=== PATIENT | female | born 1995 | race Caucasian/White ===

== ENCOUNTER 2022-02-20 17:20 | Emergency (ER) | payer OTHER, SELFPAY ==
[2022-02-20] MEDS ORDERED: Morphine 4 MG/ML VIAL ONE (18:43)
[2022-02-20] MEDS ORDERED: Promethazine HCl 25 MG/ML VIAL ONE ×2 (18:43→18:51)
[2022-02-20 18:56] LABS: #Basophils 0.1 thou/uL (0.0-0.2); #Eosinphils 0.1 thou/uL (0.0-0.7); #Lymphocytes 1.6 thou/uL (1.20-3.40); #Monocytes 0.3 thou/uL (0.11-0.59); #Neutrophils 1.8 thou/uL (1.40-6.50); %Basophils 1.3 % (0.0-1.0); %Eosinophils 1.6 % (0.0-10.0); %Lymphocytes 41.7 % (21.0-51.0); %Monocytes 8.3 % (0.0-10.0); %Neutrophils 47.1 % (42.0-75.0); Hemoglobin 11.2 g/dL (12.0-16.0); Mean Corpuscular HGB CONC 32.3 g/dL (32.0-36.0); Mean Corpuscular Hemoglobin 26.9 pg (27.0-31.0); Mean Corpuscular Volume 83.2 fL (78.0-98.0); Mean Platelet Volume 7.8 fL (7.4-10.4); Platelet Count 268 thou/uL (130-400); RBC Distribution Width 13.2 % (11.5-14.5); Red Blood Cell (RBC) Count 4.16 mill/uL (4.20-5.40); White Blood Cell (WBC) Count 3.9 thou/uL (4.8-10.8)
[2022-02-20 19:16] LABS: ALT (SGPT) 21 U/L (8-55); AST (SGOT) 22 U/L (5-34); Albumin 4.4 g/dL (3.5-5.0); Alkaline Phosphatase 72 U/L (40-110); Anion Gap 15 mmol/L (10-20); BUN (Urea Nitrogen) 10 mg/dL (7.0-18.7); Bilirubin, Total Less than 0.2 mg/dL (0.2-1.2); Calc. Creatinine Clearance 0 mL/min (70-130); Calcium 9.1 mg/dL (7.8-10.44); Carbon Dioxide 21 mmol/L (22-29); Chloride 108 mmol/L (98-107); Globulin 2.9 g/dL (2.4-3.5); Glucose 96 mg/dL (70-105); Lipase 28 U/L (8-78); Potassium 3.5 mmol/L (3.5-5.1); Protein, Total 7.3 g/dL (6.0-8.3); Sodium 140 mmol/L (136-145)
[2022-02-20 20:02] LABS: Bacteria/HPF None Seen HPF (None Seen); Bilirubin Negative (Negative); Blood, Urine Negative (Negative); Clarity Clear (Clear); Glucose, Urine (Dipstick) Normal (Negative); Ketone, Urine Negative (Negative); Leukocyte 75 Leu/uL (Negative); Mucous/LPF 1+ LPF (<2+); Nitrite Negative (Negative); Protein, Urine (Dipstick) 10 mg/dL (Neg-Trace); RBC/HPF 0-3 HPF (0-3); Squamous Epithelial 0-3 HPF (0-3); Urobilinogen Normal mg/dL (Less than 2)
[2022-02-20] MEDS ORDERED: HYDROmorphone 0.5 MG/0.5 ML SYRINGE ONE (20:04)
== END 2022-02-20 20:35 | disposition home or self-care (01) ==
LOC: ERS 17:20
DX: R10.13 Epigastric pain (principal)
CPT/HCPCS: 80053; 81003; 81015; 83690; 85025; 96374; 96375; J1170; J2270; J2550

== ENCOUNTER 2022-04-01 16:00 | Emergency (ER) | payer SELFPAY ==
[2022-04-01 16:26] LABS: #Basophils 0.1 thou/uL (0.0-0.2); #Lymphocytes 1.8 thou/uL (1.20-3.40); #Monocytes 0.4 thou/uL (0.11-0.59); #Neutrophils 3.3 thou/uL (1.40-6.50); %Basophils 1.2 % (0.0-1.0); %Eosinophils 0.9 % (0.0-10.0); %Lymphocytes 31.9 % (21.0-51.0); %Monocytes 7.6 % (0.0-10.0); %Neutrophils 58.4 % (42.0-75.0); Hemoglobin 10.1 g/dL (12.0-16.0); Mean Corpuscular HGB CONC 32.3 g/dL (32.0-36.0); Mean Corpuscular Hemoglobin 25.2 pg (27.0-31.0); Mean Corpuscular Volume 78.1 fL (78.0-98.0); Mean Platelet Volume 7.7 fL (7.4-10.4); Platelet Count 331 thou/uL (130-400); RBC Distribution Width 14.8 % (11.5-14.5); Red Blood Cell (RBC) Count 4.01 mill/uL (4.20-5.40); White Blood Cell (WBC) Count 5.6 thou/uL (4.8-10.8)
[2022-04-01 16:48] LABS: ALT (SGPT) 18 U/L (8-55); AST (SGOT) 16 U/L (5-34); Albumin 4.2 g/dL (3.5-5.0); Alkaline Phosphatase 84 U/L (40-110); Anion Gap 15 mmol/L (10-20); BUN (Urea Nitrogen) 12 mg/dL (7.0-18.7); Bilirubin, Total Less than 0.2 mg/dL (0.2-1.2); Calc. Creatinine Clearance 0 mL/min (70-130); Calcium 8.9 mg/dL (7.8-10.44); Carbon Dioxide 21 mmol/L (22-29); Chloride 106 mmol/L (98-107); Globulin 3.1 g/dL (2.4-3.5); Glucose 94 mg/dL (70-105); Lipase 20 U/L (8-78); Potassium 3.8 mmol/L (3.5-5.1); Protein, Total 7.3 g/dL (6.0-8.3); Sodium 138 mmol/L (136-145)
[2022-04-01] MEDS ORDERED: Pantoprazole 40 MG VIAL ONE (17:45)
[2022-04-01] MEDS ORDERED: diphenhydrAMINE 50 MG/ML VIAL ONE (17:45)
[2022-04-01 18:17] LABS: BHCG - Serum Negative (NEGATIVE); Pregs Control Background? CLEAR/WHITE (CLR/WHITE); Pregs Control Bar Appear? YES (CONTROL BAR)
[2022-04-01] MEDS ORDERED: HYDROmorphone 0.5 MG/0.5 ML SYRINGE ONE ×2 (18:26→19:52)
[2022-04-01 19:46] LABS: Bilirubin Negative (Negative); Blood, Urine Negative (Negative); Clarity Clear (Clear); Glucose, Urine (Dipstick) Normal (Negative); Ketone, Urine Negative (Negative); Leukocyte Negative Leu/uL (Negative); Nitrite Negative (Negative); Protein, Urine (Dipstick) Negative (Neg-Trace); Specific Gravity, Urine 1.024 (1.002-1.036); Urobilinogen Normal mg/dL (Less than 2); pH, Urine 5.5 (5.0-9.0)
[2022-04-01 19:48] LABS: Pregnancy Test - Urine (BHCG) Negative (Negative); Pregu Control Background? CLEAR/WHITE (CLR/WHITE); Pregu Control Bar Appear? YES (CONTROL BAR); Specific Gravity 1.024 (1.002-1.036)
[2022-04-01] MEDS ORDERED: Ondansetron PF 4 MG/2 ML Vial ONE (19:52)
== END 2022-04-01 20:17 | disposition home or self-care (01) ==
LOC: ERS 16:00
DX: R10.13 Epigastric pain (principal); R00.0 Tachycardia, unspecified
CPT/HCPCS: 36415; 71045; 80053; 81003; 81025; 83690; 84703; 85025; 93005; 96374; 96375; C9113; J1170; J1200; J2405

== ENCOUNTER 2022-07-06 12:35 | Inpatient (IN) | payer OTHER, SELFPAY ==
[2022-07-06 13:20] LABS: Bilirubin Negative (Negative); Blood, Urine Negative (Negative); Clarity Clear (Clear); Glucose, Urine (Dipstick) Normal (Negative); Ketone, Urine Negative (Negative); Leukocyte Negative Leu/uL (Negative); Nitrite Negative (Negative); Protein, Urine (Dipstick) Negative (Neg-Trace); Specific Gravity, Urine 1.009 (1.002-1.036); Urobilinogen Normal mg/dL (Less than 2)
[2022-07-06 13:31] LABS: Amphetamine Not Detected (NotDetected); Barbiturates Screen Not Detected (NotDetected); Benzodiazepine Screen Not Detected (NotDetected); Cocaine Metabolite Screen Not Detected (NotDetected); Methadone Not Detected (NotDetected); Methamphetamine Not Detected (NotDetected); Opiate Screen Not Detected (NotDetected); Oxycodone Screen Not Detected (NotDetected); Phencyclidine (PCP) Not Detected (NotDetected); THC/Cannabinoid Screen Not Detected (NotDetected); Tricyclic Screen Not Detected (NotDetected)
[2022-07-06 13:39] LABS: #Eosinphils 0.1 thou/uL (0.0-0.7); #Lymphocytes 1.5 thou/uL (1.20-3.40); #Monocytes 0.4 thou/uL (0.11-0.59); #Neutrophils 3.7 thou/uL (1.40-6.50); %Basophils 0.7 % (0.0-1.0); %Eosinophils 1.1 % (0.0-10.0); %Lymphocytes 26.4 % (21.0-51.0); %Monocytes 6.5 % (0.0-10.0); %Neutrophils 65.3 % (42.0-75.0); Hemoglobin 10.1 g/dL (12.0-16.0); Mean Corpuscular Hemoglobin 24.1 pg (27.0-31.0); Mean Corpuscular Volume 75.2 fL (78.0-98.0); Platelet Count 318 thou/uL (130-400); RBC Distribution Width 18.7 % (11.5-14.5); Red Blood Cell (RBC) Count 4.18 mill/uL (4.20-5.40); White Blood Cell (WBC) Count 5.6 thou/uL (4.8-10.8)
[2022-07-06 13:44] LABS: BHCG - Serum Negative (NEGATIVE); Pregs Control Background? CLEAR/WHITE (CLR/WHITE); Pregs Control Bar Appear? YES (CONTROL BAR)
[2022-07-06 14:04] LABS: ALT (SGPT) 14 U/L (8-55); AST (SGOT) 14 U/L (5-34); Albumin 4.4 g/dL (3.5-5.0); Alkaline Phosphatase 86 U/L (40-110); Anion Gap 16 mmol/L (10-20); BUN (Urea Nitrogen) 12 mg/dL (7.0-18.7); Bilirubin, Total 0.2 mg/dL (0.2-1.2); Calc. Creatinine Clearance 0 mL/min (70-130); Calcium 9.6 mg/dL (7.8-10.44); Carbon Dioxide 20 mmol/L (22-29); Chloride 106 mmol/L (98-107); Estimated GFR 115; Globulin 3.1 g/dL (2.4-3.5); Glucose 98 mg/dL (70-105); Lipase 16 U/L (8-78); Protein, Total 7.5 g/dL (6.0-8.3); Sodium 138 mmol/L (136-145)
[2022-07-06] MEDS ORDERED: Ondansetron PF 4 MG/2 ML Vial ONE (14:26)
[2022-07-06] MEDS ORDERED: Morphine 4 MG/ML VIAL ONE (14:26)
[2022-07-06] MEDS ORDERED: HYDROmorphone 0.5 MG/0.5 ML SYRINGE ONE (15:19)
[2022-07-06] MEDS ORDERED: Ondansetron ODT 4 MG TAB PO PRN (15:48)
[2022-07-06] MEDS ORDERED: Acetaminophen 325 MG TAB PO PRN (15:48)
[2022-07-06] MEDS ORDERED: Senokot S 8.6-50 MG TAB PO PRN (15:48)
[2022-07-06] MEDS ORDERED: Metoclopramide HCl 10 MG/2 ML VIAL IVP SCH (16:45)
[2022-07-06] MEDS ORDERED: HYDROmorphone 0.5 MG/0.5 ML SYRINGE SLOW IVP SCH (18:00)
[2022-07-06] MEDS ORDERED: Pantoprazole 40 MG VIAL IVP SCH (18:00)
[2022-07-06] MEDS ORDERED: Promethazine HCl 25 MG/ML VIAL IM SCH (18:15)
[2022-07-06] MEDS: Ondansetron PF 4 MG/2 ML Vial IVP PRN (18:27)
[2022-07-06] MEDS: Sodium Chloride 0.9% 1,000 ML IV SCH (18:29)
[2022-07-06 18:34] VITALS: BMI 35.6
[2022-07-06 19:12] LABS: SARS-CoV-2 NAA Rapid Test Not Detected (NotDetected)
[2022-07-06] MEDS: Morphine 2 MG/ML VIAL SLOW IVP PRN (21:05)
[2022-07-06] MEDS: Venlafaxine HCl XR 150 MG CAP PO SCH ×2 (21:05→21:06)
[2022-07-06 22:12] LABS: Hemoglobin 9.1 g/dL (12.0-16.0)
[2022-07-06] MEDS ORDERED: Morphine 2 MG/ML VIAL SLOW IVP SCH (22:30)
[2022-07-07] MEDS ORDERED: HYDROmorphone 0.5 MG/0.5 ML SYRINGE SLOW IVP SCH ×3 (01:00→18:30)
[2022-07-07] MEDS ORDERED: diphenhydrAMINE 50 MG/ML VIAL IVP SCH ×2 (01:15→12:15)
[2022-07-07] MEDS ORDERED: diphenhydrAMINE 25 MG in Sodium Chloride 0.9% 50 ML IVPB SCH (01:15)
[2022-07-07] MEDS: Sodium Chloride 0.9% 1,000 ML IV SCH ×4 (01:33→23:31)
[2022-07-07] MEDS: Morphine 2 MG/ML VIAL SLOW IVP PRN ×6 (03:13→23:27)
[2022-07-07 05:15] LABS: #Eosinphils 0.1 thou/uL (0.0-0.7); #Lymphocytes 1.9 thou/uL (1.20-3.40); #Monocytes 0.4 thou/uL (0.11-0.59); #Neutrophils 2.4 thou/uL (1.40-6.50); %Basophils 0.9 % (0.0-1.0); %Eosinophils 1.5 % (0.0-10.0); %Lymphocytes 39.6 % (21.0-51.0); %Monocytes 7.5 % (0.0-10.0); %Neutrophils 50.6 % (42.0-75.0); Hemoglobin 8.9 g/dL (12.0-16.0); Mean Corpuscular HGB CONC 31.5 g/dL (32.0-36.0); Mean Corpuscular Hemoglobin 24.1 pg (27.0-31.0); Mean Corpuscular Volume 76.5 fL (78.0-98.0); Mean Platelet Volume 8.7 fL (7.4-10.4); Platelet Count 273 thou/uL (130-400); RBC Distribution Width 18.4 % (11.5-14.5); White Blood Cell (WBC) Count 4.7 thou/uL (4.8-10.8)
[2022-07-07 05:35] LABS: ALT (SGPT) 11 U/L (8-55); AST (SGOT) 12 U/L (5-34); Albumin 3.6 g/dL (3.5-5.0); Alkaline Phosphatase 77 U/L (40-110); Anion Gap 12 mmol/L (10-20); BUN (Urea Nitrogen) 9 mg/dL (7.0-18.7); Bilirubin, Total 0.3 mg/dL (0.2-1.2); Calc. Creatinine Clearance 204 mL/min (70-130); Calcium 8.7 mg/dL (7.8-10.44); Carbon Dioxide 23 mmol/L (22-29); Chloride 109 mmol/L (98-107); Estimated GFR 121; Globulin 2.3 g/dL (2.4-3.5); Glucose 80 mg/dL (70-105); Lipase 30 U/L (8-78); Potassium 4.2 mmol/L (3.5-5.1); Protein, Total 5.9 g/dL (6.0-8.3); Sodium 140 mmol/L (136-145)
[2022-07-07] MEDS ORDERED: Lidocaine 1% MPF 2 ML VIAL ONE (10:57)
[2022-07-07] MEDS ORDERED: PROPOFOL 200 MG/20 ML VIAL ONE (10:57)
[2022-07-07] MEDS ORDERED: Ondansetron HCl/PF 4 MG/2 ML Vial IVP PRN (11:27)
[2022-07-07] MEDS ORDERED: PACU-Morphine 4MG/ML VIAL SLOW IVP PRN (11:27)
[2022-07-07] MEDS ORDERED: Morphine 2 MG/ML VIAL ONE (11:33)
[2022-07-07] MEDS: Pantoprazole 40 MG VIAL IVP SCH ×2 (12:06→20:27)
[2022-07-07 17:10] LABS: Hemoglobin 9.9 g/dL (12.0-16.0)
[2022-07-08] MEDS: Morphine 2 MG/ML VIAL SLOW IVP PRN ×3 (02:44→08:24)
[2022-07-08] MEDS: Ondansetron PF 4 MG/2 ML Vial IVP PRN (04:18)
[2022-07-08 05:58] LABS: ALT (SGPT) 14 U/L (8-55); AST (SGOT) 14 U/L (5-34); Albumin 3.8 g/dL (3.5-5.0); Alkaline Phosphatase 79 U/L (40-110); Anion Gap 12 mmol/L (10-20); BUN (Urea Nitrogen) 7 mg/dL (7.0-18.7); Bilirubin, Total 0.4 mg/dL (0.2-1.2); Calc. Creatinine Clearance 195 mL/min (70-130); Calcium 8.8 mg/dL (7.8-10.44); Carbon Dioxide 25 mmol/L (22-29); Chloride 105 mmol/L (98-107); Estimated GFR 115; Globulin 2.7 g/dL (2.4-3.5); Glucose 82 mg/dL (70-105); Iron Binding Capacity, Total 444 mcg/dL (265-497); Lipase 16 U/L (8-78); Potassium 3.9 mmol/L (3.5-5.1); Protein, Total 6.5 g/dL (6.0-8.3); Sodium 138 mmol/L (136-145)
[2022-07-08] MEDS: Pantoprazole 40 MG VIAL IVP SCH ×2 (08:24→20:22)
[2022-07-08] MEDS ORDERED: HYDROmorphone 0.5 MG/0.5 ML SYRINGE SLOW IVP SCH (10:00)
[2022-07-08] MEDS: Sodium Chloride 0.9% 1,000 ML IV SCH ×2 (10:41→20:27)
[2022-07-08] MEDS ORDERED: Ketorolac Tromethamine 30 MG/ML VIAL IVP PRN (12:36)
[2022-07-08] MEDS: Morphine ER 15 MG TAB PO SCH (14:29)
[2022-07-08] MEDS: Morphine 4 MG/ML VIAL SLOW IVP PRN ×3 (15:11→22:09)
[2022-07-08] MEDS: Venlafaxine HCl XR 150 MG CAP PO SCH (20:22)
[2022-07-09] MEDS: Morphine ER 15 MG TAB PO SCH (00:01)
[2022-07-09] MEDS: Morphine 4 MG/ML VIAL SLOW IVP PRN ×4 (01:14→10:48)
[2022-07-09] MEDS: Sodium Chloride 0.9% 1,000 ML IV SCH (04:39)
[2022-07-09 06:02] LABS: ALT (SGPT) 12 U/L (8-55); AST (SGOT) 14 U/L (5-34); Albumin 3.5 g/dL (3.5-5.0); Alkaline Phosphatase 73 U/L (40-110); Anion Gap 14 mmol/L (10-20); BUN (Urea Nitrogen) 7 mg/dL (7.0-18.7); Bilirubin, Total 0.3 mg/dL (0.2-1.2); CRP (Inflammatory) 2.01 mg/dL (= or < 0.5); Calc. Creatinine Clearance 209 mL/min (70-130); Calcium 8.7 mg/dL (7.8-10.44); Carbon Dioxide 21 mmol/L (22-29); Chloride 106 mmol/L (98-107); Estimated GFR 123; Globulin 2.5 g/dL (2.4-3.5); Glucose 69 mg/dL (70-105); Lipase 16 U/L (8-78); Sodium 137 mmol/L (136-145)
[2022-07-09] MEDS: Pantoprazole 40 MG VIAL IVP SCH (07:45)
[2022-07-09 08:36] VITALS: BP 110/72; TEMP 97.3
[2022-07-09 09:06] LABS: Hemoglobin 8.7 g/dL (12.0-16.0); Platelet Count 252 thou/uL (130-400)
[2022-07-11 14:59] LABS: ANA Symphony (Qualitative) Negative (Negative); ANA Symphony (Quantitative) 0.2 Ratio (< 0.7 Negative); dsDNA IgG Antibody 0.6 IU/mL (<10 Negative)
== END 2022-07-09 11:35 | disposition home or self-care (01) | DRG 377 ==
LOC: SUATTDRO 12:35 → ERS 12:35 → ERHOLD 15:57 → 2NO 17:50 → MSONC 07-07 17:34 → OBSVTOIN 07-08 13:49
PROVIDERS: ADMIT Internal Medicine; ATTEND Internal Medicine
PROC: 0DB98ZX Excision of Duodenum, Via Natural or Artificial Opening Endoscopic, Diagnostic (ICD-10-PCS; principal; 2022-07-07)
PROC: 0DB78ZX Excision of Stomach, Pylorus, Via Natural or Artificial Opening Endoscopic, Diagnostic (ICD-10-PCS; 2022-07-07)
PROC: 0W3P8ZZ Control Bleeding in Gastrointestinal Tract, Via Natural or Artificial Opening Endoscopic (ICD-10-PCS; 2022-07-07)
DX: K29.01 Acute gastritis with bleeding (principal); K85.80 Other acute pancreatitis without necrosis or infection; K86.1 Other chronic pancreatitis; Z20.822 Contact with and (suspected) exposure to COVID-19; D50.9 Iron deficiency anemia, unspecified; Z90.710 Acquired absence of both cervix and uterus; Z90.49 Acquired absence of other specified parts of digestive tract; Z79.899 Other long term (current) drug therapy; Z86.711 Personal history of pulmonary embolism; Z53.29 Procedure and treatment not carried out because of patient's decision for other reasons
CPT/HCPCS: 36415; 71045; 80053; 80306; 81003; 82728; 82787; 83516; 83550; 83690; 84484; 84703; 85014; 85018; 85025; 85049; 85652; 86038; 86140; 86225; 88305; 93005; C9113; J1170; J1200; J1885; J2270; J2405; J2704; J7050; U0002

== ENCOUNTER 2024-04-19 20:26 | Emergency (ER) | payer BC, SELFPAY ==
[2024-04-19 21:50] LABS: #Basophils 0.04 10x3/uL (0.0-0.2); %Basophils 0.6 % (0.0-1.0); %Eosinophils 1.7 % (0.0-10.0); %Lymphocytes 31.6 % (21.0-51.0); %Monocytes 10.7 % (0.0-10.0); %Neutrophils 55.2 % (42.0-75.0); Hematocrit 35.2 % (36.0-47.0); Hemoglobin 11.5 g/dL (12.0-16.0); Mean Corpuscular HGB CONC 32.7 g/dL (32.0-36.0); Mean Corpuscular Hemoglobin 24.9 pg (27.0-31.0); Mean Corpuscular Volume 76.2 fL (78.0-98.0); Mean Platelet Volume 10.2 fL (7.4-10.4); Platelet Count 360 10x3/uL (130-400); Red Blood Cell (RBC) Count 4.62 mill/uL (4.20-5.40)
[2024-04-19] MEDS ORDERED: diphenhydrAMINE 50 MG/ML VIAL ONE (22:07)
[2024-04-19] MEDS ORDERED: Dexamethasone 10 MG/ML VIAL ONE (22:07)
[2024-04-19] MEDS ORDERED: Famotidine/PF 20 mg/2ml Vial ONE (22:08)
[2024-04-19 22:13] LABS: ALT (SGPT) 11 U/L (8-55); AST (SGOT) 11 U/L (5-34); Albumin 3.8 g/dL (3.5-5.0); Alkaline Phosphatase 78 U/L (40-110); Anion Gap 16 mmol/L (10-20); BUN (Urea Nitrogen) 8 mg/dL (7.0-18.7); Bilirubin, Total 0.2 mg/dL (0.2-1.2); Calc. Creatinine Clearance 0 mL/min (70-130); Calcium 9.4 mg/dL (7.8-10.44); Carbon Dioxide 20 mmol/L (22-29); Chloride 104 mmol/L (98-107); Estimated GFR 100; Globulin 3.8 g/dL (2.4-3.5); Glucose 112 mg/dL (70-105); Lipase 16 U/L (8-78); Potassium 3.4 mmol/L (3.5-5.1); Protein, Total 7.6 g/dL (6.0-8.3); Sodium 137 mmol/L (136-145)
[2024-04-19 22:15] LABS: PTT 31.6 sec (22.9-36.1)
[2024-04-19 22:16] LABS: Troponin I Less than 0.010 ng/mL (< 0.028)
[2024-04-19] MEDS ORDERED: HYDROmorphone 0.5 MG/0.5 ML SYRINGE ONE ×2 (22:17→23:48)
== END 2024-04-20 00:15 | disposition home or self-care (01) ==
LOC: ERS 20:26
DX: R00.2 Palpitations (principal); K86.1 Other chronic pancreatitis
CPT/HCPCS: 71045; 71275; 80053; 83690; 84443; 84484; 85025; 85610; 85730; 93005; 96374; 96375; 96376; J1100; J1170; J1200; S0028

== ENCOUNTER 2024-04-20 10:35 | Emergency (ER) | payer SELFPAY ==
[2024-04-20] MEDS ORDERED: Ondansetron PF 4 MG/2 ML Vial ONE (11:44)
[2024-04-20] MEDS ORDERED: Dicyclomine 20 MG TAB ONE (11:44)
[2024-04-20 12:23] LABS: #Basophils 0.03 10x3/uL (0.0-0.2); #Eosinphils Less than 0.03 10x3/uL (0.0-0.7); %Basophils 0.4 % (0.0-1.0); %Lymphocytes 10.4 % (21.0-51.0); %Monocytes 5.2 % (0.0-10.0); %Neutrophils 83.6 % (42.0-75.0); Hemoglobin 9.9 g/dL (12.0-16.0); Mean Corpuscular HGB CONC 31.9 g/dL (32.0-36.0); Mean Corpuscular Hemoglobin 24.3 pg (27.0-31.0); Mean Corpuscular Volume 76.2 fL (78.0-98.0); Mean Platelet Volume 10.6 fL (7.4-10.4); Platelet Count 332 10x3/uL (130-400); RBC Distribution Width 13.9 % (11.5-14.5); Red Blood Cell (RBC) Count 4.07 mill/uL (4.20-5.40)
[2024-04-20 12:27] LABS: BHCG - Serum Negative (NEGATIVE); Pregs Control Background? CLEAR/WHITE (CLR/WHITE); Pregs Control Bar Appear? YES (CONTROL BAR)
[2024-04-20 12:32] LABS: Magnesium 1.8 mg/dL (1.6-2.6)
[2024-04-20 12:33] LABS: Acetaminophen Less than 10 mcg/mL (10.0-30.0); Alcohol Less than 10.0 mg/dL (Less than 10); Salicylate Less than 8.0 mg/dL (15.0-30.0)
[2024-04-20 12:35] LABS: ALT (SGPT) 11 U/L (8-55); AST (SGOT) 13 U/L (5-34); Albumin 3.6 g/dL (3.5-5.0); Alkaline Phosphatase 69 U/L (40-110); Anion Gap 16 mmol/L (10-20); BUN (Urea Nitrogen) 9 mg/dL (7.0-18.7); Bilirubin, Total 0.2 mg/dL (0.2-1.2); Calc. Creatinine Clearance 0 mL/min (70-130); Calcium 9.1 mg/dL (7.8-10.44); Carbon Dioxide 21 mmol/L (22-29); Chloride 107 mmol/L (98-107); Estimated GFR 123; Globulin 3.3 g/dL (2.4-3.5); Glucose 102 mg/dL (70-105); Potassium 3.5 mmol/L (3.5-5.1); Protein, Total 6.9 g/dL (6.0-8.3); Sodium 140 mmol/L (136-145)
[2024-04-20] MEDS ORDERED: diphenhydrAMINE 50 MG CAP ONE (13:21)
[2024-04-20] MEDS ORDERED: Morphine 4 MG/ML VIAL ONE (13:21)
[2024-04-20 14:18] LABS: Amphetamine Not Detected (NotDetected); Barbiturates Screen Not Detected (NotDetected); Benzodiazepine Screen Not Detected (NotDetected); Cocaine Metabolite Screen Not Detected (NotDetected); Methadone Not Detected (NotDetected); Methamphetamine Not Detected (NotDetected); Opiate Screen Detected (NotDetected); Oxycodone Screen Not Detected (NotDetected); Phencyclidine (PCP) Not Detected (NotDetected); THC/Cannabinoid Screen Not Detected (NotDetected); Tricyclic Screen Not Detected (NotDetected)
[2024-04-20 14:26] LABS: Bacteria/HPF None Seen HPF (None Seen); Bilirubin Negative (Negative); Blood, Urine Negative (Negative); CAUTI Indications for Culture Dysuria,urgency,freq; Clarity Clear (Clear); Glucose, Urine (Dipstick) Normal (Negative); Ketone, Urine 20 mg/dL (Negative); Leukocyte Negative Leu/uL (Negative); Nitrite Negative (Negative); Protein, Urine (Dipstick) 10 mg/dL (Neg-Trace); RBC/HPF 0-3 HPF (0-3); Specific Gravity, Urine 1.031 (1.002-1.036); Squamous Epithelial 0-3 HPF (0-3); Urobilinogen Normal mg/dL (Less than 2)
[2024-04-20 14:29] LABS: Urine Culture Reflex No No
[2024-04-20 15:06] LABS: Free T4 (Free Thyroxine) 1.15 ng/dL (0.70-1.48)
== END 2024-04-20 14:08 | disposition home or self-care (01) ==
LOC: ERS 10:35
DX: R00.0 Tachycardia, unspecified (principal); R10.13 Epigastric pain; D50.9 Iron deficiency anemia, unspecified; Z55.6 Problems related to health literacy; Z86.711 Personal history of pulmonary embolism
CPT/HCPCS: 71045; 80053; 80306; 80307; 81001; 83690; 83735; 84439; 84443; 84481; 84703; 85025; 93005; 96361; 96374; J2270; J2405